=== PATIENT | male | born 1975 | race Caucasian/White ===

== ENCOUNTER 2021-11-13 17:20 | Emergency (ER) | payer OTHER, SELFPAY ==
--- NOTE | ~2021-11-13 | XR_ITS ---
EXAMINATION: XR toe 1st RT min 2V EXAM DATE: 11/13/2021 17:41 INDICATION: Pain Rt 1st toe, hit against object this P.M.. TECHNIQUE: Right 1st toe frontal, lateral and oblique projections obtained and reviewed. There is n o prior study for comparison. FINDINGS: Acute closed posttraumatic right 1st proximal phalangeal fracture with both transverse and longitudinal components extending into the interphalangeal joint. Essentially nondisplaced. There is overlying soft tissue swelling. IMPRESSION: Acute right 1st proximal phalangeal intra-articular fracture into IP joint. Reviewed, dictated and finalized at location G.
[2021-11-13 17:25] VITALS: BP 134/88; PULSE 78; RESP 16; TEMP 37.1; O2SAT 99
--- NOTE | 2021-11-13 17:34 | ED.LOWEXIN ---
HPI - Extremity Injury (Lower) General Chief Complaint: Extremity Injury, Lower Stated Complaint: R TOE/FOOT INJURY Time Seen by Provider: 11/13/21 17:35 Source: patient, RN notes reviewed and old records reviewed Mode of arrival: ambulatory Limitations: no limitations History of Present Illness HPI Narrative: 46-year-old male who presents to [facility] with injury to right 1st toe which occurred his afternoon when he was walking barefoot at home and turned and hit the baseboard at home. He has pain, swelling and bruising to the proximal aspect of his right great toe. Patient denies any tingling or numbness to his right foot, pulses strong and foot warm and pink.patient has applied ice to his right great toe, rates pain 4/10. 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 MD complaint: foot injury (right great toe) Injury: Right: toes (right great toe) Type of Injury: blunt Place: home Related Data Home Medications Medication Instructions Recorded Confirmed No Home Medications 11/13/21 11/13/21 Allergies Allergy/AdvReac Type Severity Reaction Status Date / Time No Known Allergies Allergy Verified 11/13/21 17:25 Review of Systems Review of Systems: CONSTITUTIONAL: Denies fever, chills, or sweats. EYES: Denies visual changes, redness, or discharge. ENT: Denies rhinorrhea, congestion, sore throat, or otalgia. CARDIOVASCULAR: Denies chest pain, palpitations, or edema. RESPIRATORY: Denies cough or dyspnea. GASTROINTESTINAL: Denies abdominal pain, nausea, vomiting, or diarrhea. GENITOURINARY: Denies dysuria or hematuria. SKIN: Denies rash or itching. MUSCULOSKELETAL: Denies back pain, right great toe injury with pain, or myalgia. NEUROLOGIC: Denies headache, numbness, or weakness. PSYCHIATRIC: Denies anxiety or depression. All systems reviewed & are unremarkable except as noted in HPI and below PMFSH Past Medical History Medical History (Updated 11/13/21 @ 18:35 by Kena Salvador NP) Fracture of wrist Surgical History Surgical History (Updated 11/13/21 @ 18:35 by Kena Salvador NP) No history of previous surgery Family History Family History (Updated 11/13/21 @ 18:36 by Kena L. [place], PROCESSING CLERK) Mother Hypertension Dementia Grandparent Heart disease Social History Social History (Updated 11/13/21 @ 18:35 by Kena Salvador NP) Smoking status: Never smoker Alcohol intake: current Alcohol use details: rare social Substance use: never Living arrangements: with family Gender identity (if verbalized by the patient): Male Comments At time of signature, agree with nursing past medical, surgical, social and family history. There is no relevant family history pertinent to the presenting complaint Exam Narrative: GENERAL: Well-appearing, well-nourished, and in no acute distress. HEAD: Normocephalic, atraumatic. EYES: PERRLA and EOMI. ENT: Nares clear, no rhinorrhea or epistaxis. Mucous membranes moist. NECK: Supple. no lymphadenopathy CHEST: Clear to auscultation. No respiratory distress. HEART: Regular rate and rhythm. No murmur heard. Normal peripheral pulses. ABDOMEN: Soft, nontender, nondistended, normal active bowel sounds. EXTREMITIES: Normal range of motion. No edema. Right great toe proximally is bruised and very swollen is painful to palpation and with ambulation. Patient wears steel toed shoes at work he work at [employer]. SKIN: Warm, dry, no rash. NEURO: No focal deficits. Alert and oriented x3. Course Course Level of Care: Express Care Visit Vital Signs Vital signs: Vital Signs Temperature 37.1 C 11/13/21 17:25 Pulse Rate 78 11/13/21 17:25 Respiratory Rate 16 11/13/21 17:25 Blood Pressure 134/88 11/13/21 17:25 Pulse Oximetry 99 11/13/21 17:25 Temperature 37.1 C 11/13/21 17:25 Pulse Rate 78 11/13/21 17:25 Respiratory Rate 16 11/13/21 17:25 Blood Pressure 134/88 11/13/21 17:25 Pulse Oximet
== END 2021-11-13 18:15 | disposition home or self-care (01) ==
PROVIDERS: Emergency Provider Registered Nurse
DX: S92.414A Nondisplaced fracture of proximal phalanx of right great toe, initial encounter for closed fracture (principal); W22.09XA Striking against other stationary object, initial encounter
CPT/HCPCS: 73660; 99214; G0463